=== PATIENT | female | born 1930 | race Caucasian/White ===

== ENCOUNTER 2019-11-09 17:13 | Observation (INO) ==
[2019-11-09] MEDS ORDERED: Ondansetron 4 MG/2 ML VIAL IVP STA (17:24)
[2019-11-09] MEDS ORDERED: 0.9 % Sodium Chloride 500 ML IVC STA (17:24)
[2019-11-09 17:55] LABS: Basophils # 0.1 K/mcL (0.0-0.2); Basophils % 0.8 %; Eosinophils % 0.3 %; Hemoglobin 14.1 g/dL (11.5-15.4); Immature Granulocytes % 0.2 % (0-4); Lymphocytes # 0.9 K/mcL (0.6-4.6); Lymphocytes % 13.2 %; Mean Corpuscular HGB Conc 32.8 g/dL (31.6-35.5); Mean Corpuscular Hemoglobin 31.1 pg (28.0-33.3); Mean Corpuscular Volume 94.7 fL (83.0-100.0); Mean Platelet Volume 9.1 fL (9.4-12.4); Monocytes # 0.5 K/mcL (0.0-1.3); Monocytes % 7.3 %; Platelet Count 281 K/mcL (140-400); Red Blood Count 4.54 M/mcL (3.82-4.97); Red Cell Distribution Width 13.2 % (11.5-14.5); Segmented Neutrophils % 78.2 %; White Blood Count 6.4 K/mcL (4.3-11.1)
[2019-11-09 18:15] LABS: Alanine Aminotransferase 24 Units/L (7-52); Albumin 4.3 g/dL (3.5-5.7); Albumin/Globulin Ratio 1.7 (1.1-2.2); Alkaline Phosphatase 51 Units/L (34-104); Aspartate Amino Transferase 22 Units/L (13-39); BUN/Creatinine Ratio 19 (6-26); Bilirubin,Direct 0.1 mg/dL (0.0-0.2); Bilirubin,Indirect 0.2 mg/dL (0.0-1.0); Bilirubin,Total 0.3 mg/dL (0.3-1.0); Blood Urea Nitrogen 19 mg/dL (8-23); Calcium 9.3 mg/dL (8.6-10.3); Carbon Dioxide 24 mEq/L (23-29); Chloride 99 mEq/L (98-107); Globulin 2.6 g/dL (2.4-3.5); Glucose 157 mg/dL (70-105); Osmolality,Calculated 286 (280-300); Sodium 135 mEq/L (136-145); Total Protein 6.9 g/dL (6.4-8.9); Troponin I < 0.03 ng/mL (< 0.04); eGFR For African Americans > 60 (> 60); eGFR For Non-African Americans 54 (> 60)
[2019-11-09] MEDS ORDERED: Ondansetron 4 MG/2 ML VIAL IVP PRN (20:32)
[2019-11-09] MEDS ORDERED: Naloxone 0.4 MG/ML INJ IVP PRN (20:32)
[2019-11-09] MEDS ORDERED: Dextrose Gel 15 GM/37.5 ML TUBE PO PRN ×2 (20:35)
[2019-11-09] MEDS ORDERED: *HR* Dextrose 50 % in Water (Syg) 50 ML SYRINGE IVP PRN (20:35)
[2019-11-09] MEDS ORDERED: D5% in Water 1,000 ML IVC PRN (20:35)
[2019-11-09 21:50] LABS: Thyroid Stimulating Hormone 1.949 mcIU/mL (0.340-5.600)
[2019-11-09] MEDS: Insulin LISPRO 300 UNITS/3 ML VIAL SQ SCH (22:36)
[2019-11-09] MEDS: 0.9 % Sodium Chloride 1,000 ML IVC SCH (22:58)
[2019-11-09] MEDS: *HR* Heparin 5,000 UNIT/ML VIAL SQ SCH (22:58)
[2019-11-09] MEDS ORDERED: Ketorolac 15 MG/ML VIAL IVP PRN (23:18)
[2019-11-10 02:27] LABS: Basophils % 0.5 %; Eosinophils # 0.1 K/mcL (0.0-0.6); Hematocrit 37.9 % (35.3-44.9); Hemoglobin 12.6 g/dL (11.5-15.4); Immature Granulocytes % 0.2 % (0-4); Lymphocytes # 1.8 K/mcL (0.6-4.6); Lymphocytes % 29.3 %; Mean Corpuscular HGB Conc 33.2 g/dL (31.6-35.5); Mean Corpuscular Hemoglobin 31.2 pg (28.0-33.3); Mean Corpuscular Volume 93.8 fL (83.0-100.0); Mean Platelet Volume 9.1 fL (9.4-12.4); Monocytes # 0.6 K/mcL (0.0-1.3); Monocytes % 10.4 %; Neutrophils # 3.6 K/mcL (1.6-8.9); Platelet Count 278 K/mcL (140-400); Red Blood Count 4.04 M/mcL (3.82-4.97); Red Cell Distribution Width 13.2 % (11.5-14.5); Segmented Neutrophils % 58.6 %; White Blood Count 6.1 K/mcL (4.3-11.1)
[2019-11-10 02:28] LABS: INR 1.1
[2019-11-10] MEDS: Acetaminophen 325 MG TABLET PO PRN ×2 (02:37→14:17)
[2019-11-10 02:44] LABS: BUN/Creatinine Ratio 18 (6-26); Blood Urea Nitrogen 16 mg/dL (8-23); Carbon Dioxide 24 mEq/L (23-29); Chloride 108 mEq/L (98-107); Glucose 97 mg/dL (70-105); Magnesium 2.3 mg/dL (1.6-2.6); Osmolality,Calculated 287 (280-300); Phosphorous 3.3 mg/dL (2.7-4.5); Sodium 138 mEq/L (136-145); eGFR For African Americans > 60 (> 60); eGFR For Non-African Americans 58 (> 60)
[2019-11-10 03:08] LABS: Vitamin B12 623 pg/mL (250-1100)
[2019-11-10] MEDS ORDERED: *HR* LORazepam 0.5 MG TABLET PO PRN (03:41)
[2019-11-10 04:02] LABS: Vitamin D 25 Hydroxy 14 ng/mL (30-80)
[2019-11-10] MEDS: *HR* Heparin 5,000 UNIT/ML VIAL SQ SCH ×3 (07:38→21:35)
[2019-11-10] MEDS: 0.9 % Sodium Chloride 1,000 ML IVC SCH (08:10)
[2019-11-10] MEDS: Insulin LISPRO 300 UNITS/3 ML VIAL SQ SCH ×4 (08:33→21:33)
[2019-11-10 08:40] LABS: Bilirubin,Urine Negative (Negative); Blood,Urine Negative (Negative); Clarity,Urine Clear (Clear); Color,Urine Yellow (Yellow); Glucose,Urine (UA) Normal (Normal); Ketones,Urine Negative (Negative); Leukocyte Esterase,Urine Trace (Negative); Nitrite,Urine Negative (Negative); Protein,Urine Negative (Neg-Trace); Specific Gravity,Urine 1.016 (1.010-1.025); Urobilinogen,Urine Normal (Normal)
[2019-11-10 08:43] LABS: Bacteria,Urine None Seen per hpf (None-Few); Hyaline Casts,Urine None Seen per lpf (None-Few); RBC,Urine 0-3 per hpf (0-3); Squamous Epithelial Cell,Urine Many per lpf (None-Few)
[2019-11-10] MEDS: Cholecalciferol (D-3) 1,000 UNIT (25MCG) TABLET PO SCH (10:29)
[2019-11-10] MEDS: Gabapentin 300 MG CAPSULE PO SCH ×2 (10:29→10:33)
[2019-11-10] MEDS ORDERED: *HR* LORazepam 1 MG TABLET PO PRN (18:09)
[2019-11-10] MEDS ORDERED: *HR* HYDROcodone/Acet 5/325 mg TABLET PO PRN (18:09)
[2019-11-10] MEDS ORDERED: Loratadine 10 MG TABLET PO PRN (18:11)
[2019-11-10] MEDS: Sennosides/Docusate Sodium TABLET PO SCH (21:34)
[2019-11-10] MEDS: carBAMazepine 200 MG TABLET PO SCH (21:34)
[2019-11-11 02:29] LABS: BUN/Creatinine Ratio 16 (6-26); Basophils % 0.8 %; Blood Urea Nitrogen 13 mg/dL (8-23); Calcium 9.2 mg/dL (8.6-10.3); Carbon Dioxide 24 mEq/L (23-29); Chloride 105 mEq/L (98-107); Eosinophils # 0.1 K/mcL (0.0-0.6); Eosinophils % 1.7 %; Glucose 115 mg/dL (70-105); Hematocrit 40.2 % (35.3-44.9); Hemoglobin 13.8 g/dL (11.5-15.4); Immature Granulocytes % 0.2 % (0-4); Lymphocytes # 1.3 K/mcL (0.6-4.6); Lymphocytes % 26.7 %; Mean Corpuscular HGB Conc 34.3 g/dL (31.6-35.5); Mean Corpuscular Hemoglobin 31.1 pg (28.0-33.3); Mean Corpuscular Volume 90.5 fL (83.0-100.0); Mean Platelet Volume 9.1 fL (9.4-12.4); Monocytes # 0.5 K/mcL (0.0-1.3); Monocytes % 10.7 %; Neutrophils # 2.9 K/mcL (1.6-8.9); Osmolality,Calculated 287 (280-300); Platelet Count 308 K/mcL (140-400); Potassium 4.1 mEq/L (3.5-5.1); Red Blood Count 4.44 M/mcL (3.82-4.97); Red Cell Distribution Width 13.4 % (11.5-14.5); Segmented Neutrophils % 59.9 %; Sodium 138 mEq/L (136-145); White Blood Count 4.8 K/mcL (4.3-11.1); eGFR For African Americans > 60 (> 60); eGFR For Non-African Americans > 60 (> 60)
[2019-11-11] MEDS: Acetaminophen 325 MG TABLET PO PRN (03:50)
[2019-11-11] MEDS: *HR* Heparin 5,000 UNIT/ML VIAL SQ SCH (06:11)
[2019-11-11 07:36] VITALS: BP 154/64
[2019-11-11] MEDS: Insulin LISPRO 300 UNITS/3 ML VIAL SQ SCH (07:57)
[2019-11-11] MEDS: Cholecalciferol (D-3) 1,000 UNIT (25MCG) TABLET PO SCH (08:18)
[2019-11-11] MEDS: Sennosides/Docusate Sodium TABLET PO SCH (08:18)
[2019-11-11] MEDS: carBAMazepine 200 MG TABLET PO SCH (08:20)
[2019-11-11 08:24] LABS: Estimated Average Glucose 134 mg/dl
[2019-11-11] MEDS ORDERED: Lisinopril 20 MG TABLET PO SCH (09:00)
[2019-11-11] MEDS ORDERED: amLODIPine 5 MG TABLET PO SCH (09:00)
== END 2019-11-11 12:10 | disposition home or self-care (01) ==
LOC: 3ANU 17:13 → EMEROOARM 17:13 → SUATTDRO 19:55 → 3ANU 20:43
PROVIDERS: ADMIT Student in an Organized Health Care Education/Training Program; ATTEND Pharmacist